=== PATIENT | male | born 1995 | race Caucasian/White ===

== ENCOUNTER 2020-03-21 10:29 | Emergency (ER) | payer SELFPAY ==
[2020-03-21] MEDS ORDERED: Lidocaine 1% PF 5 ML VIAL ONE (10:40)
[2020-03-21] MEDS ORDERED: Boostrix 0.5 ML (Tdap) VIAL ONE (10:40)
== END 2020-03-21 11:05 | disposition home or self-care (01) ==
LOC: BURERS 10:29
DX: S81.812A Laceration without foreign body, left lower leg, initial encounter (principal); W26.0XXA Contact with knife, initial encounter; Z23 Encounter for immunization
CPT/HCPCS: 12001; 90471; 90715